=== PATIENT | male | born 2000 | race Caucasian/White ===

== ENCOUNTER 2022-02-08 14:07 | Emergency (ER) | payer OTHER, SELFPAY ==
[2022-02-08 14:09] VITALS: BP 152/81; PULSE 116; RESP 17; TEMP 36.8; O2SAT 97; BMI 27.6
--- NOTE | 2022-02-08 16:12 | EX.ED.VIS.UR ---
HPI HPI - URI History of Present Illness Chief Complaint: Cough Detail of Chief Complaint: URI-like symptoms. Informant: patient and friend Onset/Context/Timing Onset: Days Context: Gradual Onset Timing: Continuous Current Severity: Mild Maximum Severity: Mild Associated Symptoms Associated Symptoms: Positive for Nasal Congestion, Headache and Nonproductive cough; Negative for Sinus Pressure, Nausea, Vomiting or Chest Pain Narrative Narrative: 22-year-old male no seen past medical or surgical history. Currently on new medications. Thursday had a mild headache Thursday headache and cough he states felt dizzy. He has had some mild loose stools no nausea or vomiting. No fever. States his arms feel weak. Prior similar symptoms: Yes Recent Illness/Hospitalization: No ROS ROS ED ROS Narrative Cough. Weakness. Loose stools. Review of Systems ROS Unobtainable: Denies due to encephalopathy Constitutional Constitutional ED: Denies chills or fever(s) Eyes Eyes: Denies blurry vision or change in vision ENT ENT ED: Denies ear pain, rhinorrhea or sore throat Cardiovascular Cardiovascular: Denies chest pain Respiratory/Chest Respiratory/Chest: Reports cough; Denies dyspnea Gastrointestinal Gastrointestinal: Reports diarrhea; Denies abdominal pain Genitourinary Genitourinary ED: Denies dysuria or hematuria Musculoskeletal Musculoskeletal: Denies arthralgias Integumentary Denies abscess Neurologic Neurologic: Reports headache(s) Psychiatric Psychiatric: Denies anxiety Endocrine Endocrinology: Denies cold intolerance Hematologic/Lymphatic Hematologic/Lymphatic: Denies easy bleeding Allergic/Immunologic Allergic/Immunologic ED: Denies mouth swelling or tongue swelling PFSH PFSH Medical History no medical history no medical history Home Medications NK 02/08/22 [History Last Taken Unknown] Allergy/AdvReac Type Severity Reaction Status Date / Time No Known Allergies Allergy Verified 02/08/22 14:08 Surgical History no surgical history no surgical history Social History Smoking Status: Never smoker EXAM Physical Exam Narrative Exam Narrative: 22-year-old male no acute distress vital signs stable afebrile. Pulse ox 97% room air no signs hypoxia. H EENT exam unremarkable. Moist Riis members. Neck nontender no lymphadenopathy. Lungs clear to auscultation bilaterally. Heart tach cardiac rate about 105 no murmur. Chest wall nontender. Abdomen soft nontender. Moving all 4 extremities. Normal motor strength and sensation. Normal range of motion. He can lift either arm or leg without any drift. Neurologic exam normal. NIH 0. Normal strength and sensation upper and lower extremities. He gets up walks to the door without any difficulty. No ataxia. Back nontender. Const Vital Signs: 02/08/22 14:09 Temperature 98.2 F Temperature Source Temporal Pulse Rate 116 H Respiratory Rate 17 Blood Pressure 152/81 H Blood Pressure Mean 104 Pulse Ox 97 Oxygen Delivery Method Room Air Positive well nourished and well developed; Negative for obese, cachectic or contractures General Appearance ED: well developed and NAD; Negative for cachectic, contractures, cyanotic, diaphoretic or pallor Nutritional Appearance: Negative for cachectic or obese HEENT Reports moist mucous membranes; Denies dry mucous membranes normocephalic and atraumatic; Negative for scalp tenderness Face and Sinus: Negative for sinus tenderness Mouth ED: No dry mucous membranes Mouth: No dry mucous membranes Teeth and Gingiva: Negative for caries Throat: posterior oropharynx normal; Negative for tonsils abnormal or posterior oropharynx abnormal Eyes PERRL and EOMs intact bilaterally General Eye ED: Negative for pale conjunctiva or scleral icterus Neck no lymphadenopathy, supple, no meningeal signs and no JVD General: Negative for anterior neck swelling or lymphadenopathy Resp normal respiratory effort and clear to auscultation bilaterally Effort and Inspection: Negative for retractions Auscultation: Negative for rales, rhonchi or wheezes Cardio S1 normal heart sound, S2 normal heart sound and no murmurs Rate: regular rate; Negative for bradycardia or tachycardic Rhythm: regular rhythm; Negative for abnormal rhythm GI non-tender, non-distended and no masses Inspection: Negative for abdominal distention Auscultation: normoactive bowel sounds Palpation: soft; Negative for tender or guarding Back/Spine no CVA tenderness and normal ROM General Back: Negative for CVA tenderness Cervical Spine: Negative for cervical spine tenderness Thoracic Spine / Upper Back: Negative for thoracic spinal tenderness Lumbar Spine / Lower Back: Negative for lumbar spinal tenderness Sacrum: Negative for tenderness Extremity normal to inspection and full ROM General Extremety ED: Negative for cyanosis or tenderness General Extremity: Negative for cyanosis Neuro oriented x3, CN's II-XII intact bilaterally and no sensory deficits noted Neuro Narrative: NIH equals 0. Sensorium / Orientation: alert, oriented to person, oriented to place and oriented to time; Negative for orientation impaired, lethargic or stuporous Sensory Exam: No sensory level loss detected Motor Exam: strength 5/5 throughout; Negative for general weakness or strength abnormal Psych mental status grossly normal Appearance: Negative for other Attitude: No agitated Mood & Affect: Negative for depressed, anxious or tearful Skin General Skin Exam: Negative for jaundice or pallor Lesions: no lesions Rashes: no rashes Trauma: Negative for abrasion or laceration MDM MDM MDM Narrative Medical decision making narrative: 22-year-old male URI symptoms. Discussed with he and friends that I can do a COVID and influenza test which they did not want done. Clinically looks well and has a completely normal exam. Will be discharged home. Symptomatic treatment. Discharge Plan Triage Chief Complaint: Cough ED Provider: Ronnie Sumner Dx/Rx/DC Orders Clinical Impression: Viral URI Instructions: ED URI, Viral, No Abx (Adult) Prescriptions: No Action NK Primary Care Provider: Care Physician,No Primary Referrals: Kali Bar MD [Med Staff - Deep Tissue Massage Therapist] - As soon as possible Care Physician,No Primary [Primary Care Provider] - Activity Restrictions/Additional Instructions: Plenty of fluids and rest. Motrin and Tylenol for body aches. Follow-up if not improving or return if worse. Disposition Disposition: Home, Self Care
[2022-02-08 16:22] VITALS: BP 125/67; PULSE 71; RESP 15; O2SAT 98
== END 2022-02-08 16:23 | disposition home or self-care (01) ==
PROVIDERS: Emergency Provider Emergency Medicine; Visit Provider Emergency Medicine
DX: J06.9 Acute upper respiratory infection, unspecified (principal); R51.9 Headache, unspecified; R05.9 Cough, unspecified
CPT/HCPCS: 99282